=== PATIENT | male | born 1985 | race African-American/Black ===

== ENCOUNTER 2021-09-09 20:42 | Emergency (ER) | payer OTHER, SELFPAY ==
[~2021-09-09] VITALS: Ht 175.3 cm; Wt 88.6 kg
[2021-09-09 23:47] VITALS: BP 167/94
[2021-09-10] MEDS ORDERED: IBUPROFEN 600MG TAB PO ONE (01:20)
== END 2021-09-10 01:58 | disposition home or self-care (01) ==
LOC: M ED 20:42
DX: S62.617A Displaced fracture of proximal phalanx of left little finger, initial encounter for closed fracture (principal); Y92.139 Unspecified place military base as the place of occurrence of the external cause; Y93.A9 Activity, other involving cardiorespiratory exercise; Y99.1 Military activity